=== PATIENT | female | born 1975 | race Caucasian/White ===

== ENCOUNTER 2017-08-15 17:41 | Emergency (ER) | payer OTHER ==
[~2017-08-15] VITALS: Ht 165.1 cm; Wt 55.0 kg
[2017-08-15 17:45] VITALS: BP 120/97; PULSE 94; TEMP 37; Ht 165.1 cm; Wt 55.0 kg
[2017-08-15] MEDS ORDERED: FENTANYL CITRATE INJ 50 MCG/1 ML 2 ML VIAL ONE (17:54)
[2017-08-15] MEDS ORDERED: ONDANSETRON INJ 2 MG/ML 2 ML VIAL ONE (17:54)
[2017-08-15 17:56] VITALS: O2SAT 95
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
== END 2017-08-15 18:30 | disposition short-term general hospital (02) ==
LOC: C.EDB 17:52 → C.ED 18:30
DX: S30.1XXA Contusion of abdominal wall, initial encounter (principal); V49.40XA Driver injured in collision with unspecified motor vehicles in traffic accident, initial encounter; R55 Syncope and collapse; E10.9 Type 1 diabetes mellitus without complications; Z96.41 Presence of insulin pump (external) (internal); Z79.4 Long term (current) use of insulin; Z87.891 Personal history of nicotine dependence